=== PATIENT | female | born 1985 | race Two or more races ===

== ENCOUNTER 2017-02-28 19:47 | Inpatient (IN) | payer OTHER, MEDICAID ==
[~2017-02-28] VITALS: Ht 172.7 cm; Wt 65.2 kg
[2017-02-28] MEDS: CETIRIZINE (ZyrTEC) 10 MG TAB PO SCH (03:00)
[2017-02-28] MEDS ORDERED: ZYRT10TA2 PO (20:21)
[2017-02-28] MEDS ORDERED: EFFE75CA75 PO (20:21)
[2017-02-28] MEDS ORDERED: CLAR10CA3 PO (20:21)
[2017-02-28] MEDS ORDERED: BENA25CA4 PO (20:21)
[2017-02-28] MEDS ORDERED: CLON1TAB PO (20:21)
[2017-02-28] MEDS ORDERED: EPIP0.3I2 IJ (20:21)
[2017-02-28] MEDS ORDERED: GAST100C PO (20:21)
[2017-02-28] MEDS ORDERED: diphenhydrAMINE INJ 50MG/ML VIAL (J1200) IV STA ×2 (21:35→22:40)
[2017-02-28] MEDS ORDERED: LEVALBUTEROL 1.25 MG/0.5 ML CONCENTRATE NEB INH ONE (21:45)
[2017-02-28] MEDS ORDERED: dexameTHASONE 20 MG/5 ML VIAL (J1100) IV ONE ×2 (21:45→23:00)
[2017-02-28 21:48] LABS: MEAN CORPUSCULAR HEMOGLOBIN 31.5 pg (27.0-33.0); MEAN CORPUSCULAR HGB CONC 34.6 g/dl (32.0-36.5); MEAN CORPUSCULAR VOLUME 90.8 fl (80.0-96.0); RED CELL DISTRIBUTION WIDTH 12.7 % (11.5-14.5); WHITE BLOOD COUNT 10.5 K/mm3 (4.0-10.0)
[2017-02-28 22:20] LABS: CONTROL LINE HCG INT CTR LINE PRESENT
[2017-02-28 22:23] LABS: ALBUMIN 3.3 GM/DL (3.2-5.2); ALBUMIN/GLOBULIN RATIO 0.85 (1.00-1.93); ALKALINE PHOSPHATASE 68 U/L (45-117); ALT/SGPT 8 U/L (12-78); ANION GAP 10 MEQ/L (8-16); AST/SGOT 7 U/L (15-37); BILIRUBIN,DIRECT < 0.1 MG/DL (0.0-0.2); BILIRUBIN,TOTAL 0.2 MG/DL (0.2-1.0); BLOOD UREA NITROGEN 14 MG/DL (7-18); CALCIUM LEVEL 8.7 MG/DL (8.5-10.1); CARBON DIOXIDE LEVEL 23 MEQ/L (21-32); CHLORIDE LEVEL 108 MEQ/L (98-107); CREATININE FOR GFR 0.73 MG/DL (0.55-1.02); GLOMERULAR FILTRATION RATE > 60.0 (>60); GLUCOSE, FASTING 163 MG/DL (70-105); POTASSIUM SERUM 4.3 MEQ/L (3.5-5.1); SODIUM LEVEL 141 MEQ/L (136-145); TOTAL PROTEIN 7.2 GM/DL (6.4-8.2)
[2017-02-28] MEDS: LEVALBUTEROL 1.25 MG/0.5 ML CONCENTRATE NEB INH SCH ×3 (23:01→23:04)
[2017-02-28] MEDS ORDERED: LORATAB PO (23:08)
[2017-02-28] MEDS ORDERED: ZANA4TAB PO (23:09)
[2017-02-28 23:20] LABS: ABG BASE EXCESS -1.1 (-2.0-2.0); ABG HCO3 23.1 MEQ/L (22.0-26.0); ABG PARTIAL PRESSURE CO2 36.9 mmHg (35.0-45.0); ABG PARTIAL PRESSURE O2 155.6 mmHg (75.0-100.0); ABG STANDARD HCO3 23.6 MEQ/L (22.0-26.0); ABG TOTAL CO2 24.2 MEQ/L (22.0-29.0); ABG pH (ARTERIAL) 7.414 UNITS (7.350-7.450)
[2017-02-28 23:35] LABS: METHADONE URINE NEGATIVE (NEGATIVE)
[2017-03-01] VITALS (15 sets, daily range): BP systolic 133–165; BP diastolic 75–108; O2SAT 97–100
[2017-03-01] MEDS ORDERED: diphenhydrAMINE INJ 50MG/ML VIAL (J1200) IV STA (01:13)
[2017-03-01] MEDS ORDERED: LORazepam 2 MG/ML VIAL (J2060) IV STA (01:56)
--- NOTE | 2017-03-01 02:32 | HPEPDOC ---
General Date of Admission Mar 01, 2017 at 00:56 Other Providers PCP: Dr. Monteiro Attending Physician: KULWINDER JAMES MD Chief Complaint The patient is a 32-year-old female admitted with a reason for visit of Dyspnea And Respiratory Abnormalities. Source: Patient, Family Exam Limitations: Clinical conditions Timing/Duration: 4-6 hours Associated Symptoms: Chest Pain, Shortness of breath History of Present Illness Ms. Castillo is a 32 year old female who presents to [facility]'s Emergency Department with dyspnea. She is accompanied by her boyfriend who provides some of the history. Past medical history is significant for mast cell activation syndrome, psoriatic arthritis, anxiety, and history of gastroparesis secondary to a prior eating disorder. Patient is somewhat vague in describing her current condition, but reports dyspnea and shortness of breath that started earlier this evening. She relates that her current clinical condition is secondary to an exacerbation of her mast cell activation syndrome. She had a prior exacerbation approximately two weeks ago and presented to [facility] where a central line was placed. She was also intubated at that time. Patient reports that the central line caused a pneumothorax and patient was transferred to [facility] where they attempted to decompress the pneumothorax twice. They were successful on the second attempt. Patient reports that she was extubated two days later. At time of discharge, approximately one week later, patient states that she still had a 10% pneumothorax, but the thoracic specialists stated that the patient could safely be discharged. Patient presents to [facility] with what she states is an exacerbation of her mas cell activation syndrome. She reports that her symptoms always start out the same way and that she requires increased doses of benadryl and loratidine and then eventually she requires intubation. Patient received a couple doses of benadryl, steroid, and nebulizer treatments in the emergency department with no subjective improvement in patient's symptoms. She states that the only position that appears to provide some relief is sitting up and hugging her knees. She appears frustrated that no one seems to take seriously with regards to needing intubation. An ABG shows a normal pH and an increased pO2. Toxicology screen was negative. Vitals show tachycardia. Labs are with optimal range. Patient admits to shortness of breath, chest pain secondary to breathing difficulties, weakness, chronic headache, itchy eyes, runny nose, abdominal pain , dysphagia, peripheral edema only with exacerbation of psoriatic arthritis, non -bloody diarrhea, neck pain, joint pain, and decreased urination. Remainder of review of systems was negative. Hospitalist service was consulted and patient was admitted for further medical management. Home Medications Scheduled Cetirizine HCl (Zyrtec Allergy) 10 Mg Tab, 10 MG PO QHS, (Reported) Clonazepam (Clonazepam) 1 Mg Tab, 1 MG PO TID, (Reported) Clonazepam (Clonazepam) 1 Mg Tab, 1 MG PO TID Cromolyn Sodium (Gastrocrom) 100 Mg/5 Ml Con, 10 ML PO BID, (Reported) Hydroxyzine HCl (Hydroxyzine HCl) 50 Mg Tab, 50 MG PO Q8H Loratadine (Loratadine Allergy Relief) 10 Mg Tab, 10 MG PO DAILY, (Reported) Montelukast Sodium (Montelukast Sodium) 10 Mg Tab, 10 MG PO DAILY Prednisone (Prednisone) 10 Mg Tab, 10 MG PO TAPER Take 4 tabs daily x 3 days, then 3 tabs daily x 3 days, then 2 tabs daily x 3 days, then 1 tab daily x 3 days and stop Venlafaxine Hydrochloride (Effexor Xr) 75 Mg Cap, 75 MG PO DAILY, (Reported) Scheduled PRN (Epipen 2-Bernard) 0.3 Mg/0.3 Ml Inj, 0.3 MG IJ PRN PRN for allergic reaction , ( Reported) Diphenhydramine HCl (Benadryl Allergy) 25 Mg Cap, 25 MG PO Q4H PRN for MAST CELL STABILIZE, (Reported) Temazepam (Temazepam) 7.5 Mg Cap, 7.5 MG PO Q8HP PRN for ANXIETY/AGITATION Tizanidine Hydrochloride (Zanaflex) 4 Mg Tab, 1 TAB PO TID PRN for MUSCLE SPASMS , (Reported) Allergies Coded Allergies: Ciprofloxacin (Verified Allergy, Severe, anaphylaxis, 02/28/17) Enoxaparin (Verified Allergy, Severe, anaphylaxis, 02/28/17) Morphine (Verified Allergy, Severe, anaphylaxis, 02/28/17) Nitrofurantoin (Verified Allergy, Intermediate, anaphylaxis, 02/28/17) Past Medical History Medical History 1. Mast cell activation syndrome 2. Psoriatic arthritis 3. Anxiety 4. History of gastroparesis Surgical History 1. Cholecystectomy 2. Appendectomy 3. Laminectomy, L3-4, L4-5 4. Ovarian cysts x3 Family History Mother: alive, controlled atrial fibrillation Father: , in the line of duty (Electrical Discharge Machine Operator) Sister: , heroin overdose Social History Lives with boyfriend Denies children in the home Denies pets in the home Previously worked for the [employer], but was terminated secondary to mast cell activation syndrome diagnosis Admits to occasional alcohol consumption Admits to prior history of social tobacco use, but nothing currently Admits to prior marijuana use, but denies current illicit drug use Admits to domestic and international travel, but nothing recently Review of Symptoms Constitutional: Reports: Weakness, Denies: Chills, Fever, Night Sweats, Weight Loss Eyes: Reports: Other (itchy eyes), Denies: Pain, Vision change, Conjunctivae inflammation, Eyelid inflammation ENT: Reports: Head Aches, Dysphagia, Denies: Sinus Congestion, Post Nasal Drip, Epistaxis Skin: Denies: Rash, Lesions, Jaundice, Bruising Pulmonary: Reports: Dyspnea, Denies: Cough, Pleuritic Chest Pain Cardiovascular: Reports: Chest Pain (related to difficulty breathing), Denies: Palpitations, Orthopnea, Paroxysmal Noc. Dyspnea, Edema, Lt Headedness Gastrointestinal: Reports: Abdominal Pain, Diarrhea, Denies: Vomiting, Constipation, Melena, Hematochezia Genitourinary: Reports: Other Symptoms (decreased urination), Denies: Dysuria, Frequency, Incontinence, Hematuria Hematologic: Denies: Bruising, Bleeding Excessively Musculoskeletal: Reports: Neck Pain, Joint Pain Neurological: Reports: Weakness Physical Examination General Exam: Positive: Alert, Cooperative, Moderate Distress Eye Exam: Positive: PERRLA, Conjunctiva & lids normal, EOMI, Negative: Sclera icteric, Ptosis ENT Exam: Positive: Atraumatic, Mucous membr. moist/pink, Pharynx Normal, Tongue Midline, Nares Patent, Negative: Pharyngeal Edema Neck Exam: Positive: Supple, +2 carotid pulse wo bruit, Other (right-sided internal jugular venous catheter), Negative: JVD, thyromegaly Chest Exam: Positive: Wheezing (bilateral, inspiratory) Heart Exam: Positive: Tachycardic, Regular Rhythm, Normal S1, Normal S2, Negative: Gallops, Murmurs, Rubs Telemetry: Positive: Tachycardia Abdomen Exam: Positive: BS Hypoactive, Soft, Tenderness, Negative: Hepatospenomegaly, Mass, Hernia Extremity Exam: Positive: Normal pulses (tachycardic), Negative: Clubbing, Cyanosis, Edema, Tenderness, Swelling Skin Exam: Negative: Nl turgor and temperature, Rash, Breakdown, Lesion, Pruritus Neuro Exam: Positive: Cranial Nerves 3-12 NL Psych Exam: Positive: Anxiety Vital Signs Vital Signs Date Time Temp Pulse Resp B/P (MAP) Pulse Ox O2 Delivery O2 Flow Rate FiO2 03/01/17 00:47 130 20 98 03/01/17 00:46 108/54 (72) 02/28/17 19:48 98.8 Room Air Height (in): 68 Weight (kg): 67.2 BMI (kg): 22.5 Laboratory Data Labs 24H Laboratory Tests 2 02/28/17 21:39: Anion Gap 10, Glomerular Filtration Rate > 60.0, Calcium Level 8.7, Aspartate Amino Transf (AST/SGOT) 7L, Alanine Aminotransferase (ALT/SGPT) 8L, Alkaline Phosphatase 68, Total Bilirubin 0.2, Direct Bilirubin < 0.1, Total Protein 7.2, Albumin 3.3, Albumin/Globulin Ratio 0.85L, Thyroid Stimulating Hormone (TSH) 1.250, Human Chorionic Gonadotropin, Qual NEGATIVE, Salicylates Level < 1.7L, Acetaminophen Level < 2.0L, Ethyl Alcohol Level < 0.003 02/28/17 22:52: Urine Amphetamines Screen NEGATIVE, Urine Benzodiazepines Screen NEGATIVE, Urine Opiates Screen NEGATIVE, Urine Methadone Screen NEGATIVE, Urine Barbiturates Screen NEGATIVE, Urine Phencyclidine Screen NEGATIVE, Urine Cocaine Metabolite Screen NEGATIVE, Urine Cannabinoids Screen NEGATIVE 02/28/17 23:06: Blood Gas Bicarbonate Standard 23.6, Arterial Blood pH 7.414, Arterial Blood Partial Pressure CO2 36.9, Arterial Blood Partial Pressure O2 155.6H, Arterial Blood Total CO2 24.2, Arterial Blood HCO3 23.1, Arterial Blood Base Excess -1.1 , Arterial Blood Oxygen Saturation 99.2H CBC/BMP Laboratory Tests 02/28/17 21:39 Red Blood Count 3.80 L, Mean Corpuscular Volume 90.8, Mean Corpuscular Hemoglobin 31.5, Mean Corpuscular Hemoglobin Concent 34.6, Red Cell Distribution Width 12.7 RAD Interpretation STUDY: CXR Rad Actions: Report Not Available, Films Reviewed RAD Interpretation: Normal Assessment/Plan This is a 32 year old female with a past medical history significant for mast cell activation syndrome, psoriatic arthritis, anxiety, and a history of gastroparesis who presents with dyspnea with an unclear etiology at this time. Could be secondary to an underlying, undiagnosed etiology of asthma. Plan / VTE VTE Prophylaxis Ordered?: Yes (TEDs and sequentials) Plan Plan Dyspnea History of mast cell activation syndrome apparently diagnosed at [facility] in [place], [place]. Obtaining records to confirm diagnosis. Initiate ranitidine, diphenhydramine, albuterol nebulizer, and oxygen for the time being. Oxygen saturation within optimal range. ABG shows hypoventilation. Tachycardia Heart rate bedside was 139 and regular. Admit patient to PCU for cardiac monitoring. Anxiety Continue patient on home medication of clonazepam. Hyperglycemia Blood glucose at time of admission was 163. Continue to monitor. Likely stress response. Disposition Admit: PCU Anticipated hospitalization: 2 nights Attending: Dr. Snyder Obtain records from [facility] in [place], [place] where diagnosis of mast cell activation syndrome was made. Diet: Continue Current Activity: Encourage Ambulation Diagnostics: Check Labs, Repeat Labs in AM Anticipated Discharge: Home ALISHA MENG Mar 01, 2017 02:31
[2017-03-01] MEDS ORDERED: SODIUM CHLORIDE 0.9% INJ 10 ML SYR IV PRN (03:00)
[2017-03-01] MEDS: ALBUTEROL SULFATE 2.5 MG/0.5 ML INH NEB SOLN NEB PRN ×3 (04:01→11:59)
[2017-03-01] MEDS: diphenhydrAMINE 50 MG CAP PO PRN ×3 (04:13→23:47)
[2017-03-01] MEDS: ACETAMINOPHEN 325 MG TAB PO PRN ×3 (04:14→18:29)
[2017-03-01] MEDS: SODIUM CHLORIDE 0.9% INJ 10 ML SYR IV SCH ×3 (06:39→20:44)
[2017-03-01] MEDS ORDERED: predniSONE 10 MG TAB PO ONE (07:15)
[2017-03-01] MEDS ORDERED: MONTELUKAST 10 MG TAB PO ONE (07:15)
--- NOTE | 2017-03-01 08:51 | REP ---
Portable chest: Single view. History: Line placement. Comparison study: January 12, 2017. Findings: A right internal jugular line has been inserted with its tip in the expected location of the superior vena cava. EKG monitoring electrodes are seen and there are surgical clips in the right upper quadrant of the abdomen. The lungs are well inflated and clear. The heart is not enlarged. Pulmonary vasculature is not increased. There is no evidence of pneumothorax. Impression: Right internal jugular line in place. No evidence of pneumothorax. Signed by Franklin Kate MD 03/01/2017 08:42 A
[2017-03-01] MEDS ORDERED: diphenhydrAMINE INJ 50MG/ML VIAL (J1200) IV ONE ×2 (09:00→14:00)
[2017-03-01] MEDS: clonazePAM 1 MG TAB PO SCH ×3 (09:10→20:43)
[2017-03-01] MEDS: raNITIdine SYRUP 150 MG/10 ML UDC PO SCH ×2 (10:19→20:42)
[2017-03-01] MEDS: tiZANidine 4 MG TAB PO PRN ×3 (10:20→23:50)
[2017-03-01] MEDS: VENLAFAXINE **XR** 75MG CAPSULE PO SCH (10:21)
[2017-03-01] MEDS ORDERED: MONT10TA2 PO (13:05)
[2017-03-01] MEDS ORDERED: PRED10TA2 PO (13:05)
[2017-03-01] MEDS ORDERED: ISOVUE-370 76% 100ML VIAL (Q9967) As Ordered ONE ×2 (13:52→15:15)
--- NOTE | 2017-03-01 15:00 | REP ---
CERVICAL SPINE: AP and lateral views of the cervical spine are performed. There is no compression fracture. There is no prevertebral soft tissue swelling. There is straightening of the normal cervical lordosis. Disc spaces appear relatively well preserved. IMPRESSION: Straightening of the normal cervical lordosis is probably positional. I do not see significant degenerative disc change. Signed by Waqar Cid MD 03/01/2017 04:46 P
--- NOTE | 2017-03-01 16:35 | REP ---
CT NECK WITH CONTRAST WITH CONTRAST: HISTORY: Respiratory distress. CONTRAST: Isovue 370, 75 mL. The naso-, moe-, and hypopharynx, larynx and subglottic trachea are normal in appearance. The salivary and thyroid glands are normal in size and density. Small lymph nodes less than 1 cm in size are present in the internal jugular chains, posterior triangles, submandibular and submental areas. The lung apices are clear. The visualized sinuses are clear. IMPRESSION: There is no neck mass or adenopathy. Signed by Rupesh Alexander MD 03/01/2017 04:42 P
--- NOTE | 2017-03-01 19:43 | MHCRPDOC ---
[facility] Consultation Consultation DATE OF CONSULTATION: 03/01/17 CONSULTATION REQUESTED BY: REASON FOR CONSULTATION: For evaluation of depression and anxiety. RELEVANT HISTORY:. Patient is a 32-year-old female, single, domiciled with the boyfriend, with past psychiatric history half major depression, anxiety disorder and eating disorder, no previous psychiatric admission to hospital. Denies any previous suicide attempt. Part medical history of mast cell activation syndrome. Patient reported that she has been diagnosed with major depression and previously been tried on Zoloft which did not help much so recently has been changed to Effexor XR 75 mg daily dose also been prescribed with Klonopin 1 mg when necessary up to 3 mg a day. She reported that she has recently moved with her boyfriend in this area and does not have a treatment provider for psychiatry over here. Because of that. Her primary medical doctor has been prescribing her psychiatric medications, but the dose of Effexor has not been helping enough, so she would like to titrate the dose of Effexor. She reported that she has been also diagnosed with eating disorder and recently went to refeeding unit. She reported that she has been diagnosed with anxiety disorder, which makes him have nervousness, fidgetiness, and at times panicky menses under stress. She also reported that she has been diagnosed with depression but recently her depression is under more control. She denies any suicidal or homicidal ideations. Denies ever attempting to kill herself, but does accept that she cuts herself as a nonsuicidal behavior, last time she cut herself was longtime ago and she is proud of able to control her impulses. She reported that she used to be on DBT and learned a lot of coping mechanisms that she would like to use in her life, but recently she came to know that her boyfriend is being deployed in 2 weeks and she will not be able to him anytime soon. She denies ever having any manic symptoms or psychotic symptoms. She currently denies any recent eating disorder problems. She denies any active PTSD or OCD symptoms PAST PSYCHIATRIC HISTORY:. Patient has been diagnosed with major depression and anxiety for a long time and has been treated outpatient. Throughout this time, she was tried on Zoloft and currently is on Effexor XR 75 mg she denies any suicide attempt. PAST MEDICAL HISTORY: Mast cell activation syndrome FAMILY HISTORY: not significant PERSONAL AND SOCIAL HISTORY: The patient was born and raised in [place]. Resides in: [place] Marital Status: S Single Children: None Employment: Full-time SUBSTANCE ABUSE HISTORY: Denies any substance use LEGAL HISTORY: . MENTAL STATUS EXAMINATION: 32yo female sitting in the chair, looks appropriate for the stated age, fair hygiene and grooming, increased psychomotor activities, no abnormal movements, cooperative with fair eye contact, speech is normal in rate, rhythm, amount and prosody, mood is sad & anxious, affect full and mood congruent, thought process is logical and goal directed, denies suicidal and homicidal ideations, denies hallucinations, no delusions elicited, aaox3, fair immediate, short term and terminal clerk memory, fair insight, judgement and impulse control DIAGNOSIS: 1. Major depressive disorder with anxiety, eating disorder by history. PLAN: 1.. Continue medical treatment. 2.. Consider starting Atarax 50 mg by mouth every 8 hours when necessary for anxiety. Patient can follow-up outpatient for psychiatry for medication titration and psychotherapy discharge planners will help her arrange follow-up treatment. Patient does not meet criteria for inpatient psychiatric admission on an involuntary basis. Vital Signs Vital Signs Date Time Temp Pulse Resp B/P (MAP) Pulse Ox O2 Delivery O2 Flow Rate FiO2 03/01/17 16:00 Room Air 03/01/17 14:10 99.6 115 20 134/93 (107) 95 Home Medications Current Medications Current Medications Venlafaxine HCl (Effexor Xr) 75 mg DAILY PO Last administered on 03/01/17t 10:21; Start 03/01/17 at 09:00; Stop 03/31/17 at 08:59 Zolpidem Tartrate (Ambien) 5 mg QHS PO ; Start 03/01/17 at 21:00; Stop 03/08/17 at 20:59 Scheduled Cetirizine HCl (Zyrtec Allergy) 10 Mg Tab, 10 MG PO QHS, (Reported) Clonazepam (Clonazepam) 1 Mg Tab, 1 MG PO TID, (Reported) Cromolyn Sodium (Gastrocrom) 100 Mg/5 Ml Con, 10 ML PO BID, (Reported) Loratadine (Loratadine Allergy Relief) 10 Mg Tab, 10 MG PO DAILY, (Reported) Montelukast Sodium (Montelukast Sodium) 10 Mg Tab, 10 MG PO DAILY Prednisone (Prednisone) 10 Mg Tab, 10 MG PO TAPER Take 4 tabs daily x 3 days, then 3 tabs daily x 3 days, then 2 tabs daily x 3 days, then 1 tab daily x 3 days and stop Venlafaxine Hydrochloride (Effexor Xr) 75 Mg Cap, 75 MG PO DAILY, (Reported) Scheduled PRN (Epipen 2-Bernard) 0.3 Mg/0.3 Ml Inj, 0.3 MG IJ PRN PRN for allergic reaction , ( Reported) Diphenhydramine HCl (Benadryl Allergy) 25 Mg Cap, 25 MG PO Q4H PRN for MAST CELL STABILIZE, (Reported) Tizanidine Hydrochloride (Zanaflex) 4 Mg Tab, 1 TAB PO TID PRN for MUSCLE SPASMS , (Reported) Allergies Coded Allergies: Ciprofloxacin (Verified Allergy, Severe, anaphylaxis, 02/28/17) Enoxaparin (Verified Allergy, Severe, anaphylaxis, 02/28/17) Morphine (Verified Allergy, Severe, anaphylaxis, 02/28/17) Nitrofurantoin (Verified Allergy, Intermediate, anaphylaxis, 02/28/17) MIRIAM CHAUDHARI MD Mar 01, 2017 19:43
[2017-03-01] MEDS: CETIRIZINE (ZyrTEC) 10 MG TAB PO SCH (20:42)
[2017-03-01] MEDS ORDERED: zolPIDEM TARTRATE 5 MG TAB PO SCH (21:00)
[2017-03-01] MEDS: hydrOXYzine 50 MG TAB PO SCH (21:13)
--- NOTE | 2017-03-01 22:25 | IPN ---
DATE: 03/01/2017 Patient seen and examined at the bedside. Chart has been reviewed. This morning patient is tearful at the bedside, complaining of significant pain in the neck. Complains of wheezing. No stridor on examination. No issues on telemetry. VITAL SIGNS: Temperature 97.5, pulse 95, respiratory rate 16, blood pressure 165/93, 99% on room air. No stridor on exam. Patient is tearful. No facial angioedema. Able to speak in full sentences. No use of respiratory accessory muscles. LUNGS: Diminished but clear to auscultation. No wheezing or rales. HEART: S1, S2, sinus rhythm. ABDOMEN: Soft, nontender, nondistended. Positive bowel sounds. NECK: Right-sided internal jugular catheter. EXTREMITIES: No cyanosis, clubbing, or any pitting edema. LABORATORY DATA: CBC and metabolic panel February 28 have been reviewed. ASSESSMENT AND PLAN: This is a 32-year-old female with history of mast cell activation syndrome, psoriatic arthritis, anxiety, and gastroparesis, who presents with respiratory distress. CURRENT ISSUES: 1. Dyspnea with history of mast cell activation syndrome diagnosed in the past. Obtaining records for diagnosis. Continue on ranitidine, diphenhydramine, albuterol, oxygen. Add montelukast and potassium 30 mg daily and discharge once stable. 2. Anxiety and severe depression. Patient has had multiple stressors recently. She lost her job. Family has left her. Severely depressed about her chronic medical illness. She was agreeable to having a psychiatrist see her. 3. Insomnia. Patient will be given Ambien. 4. Hyperglycemia. Patient's glucose was 163. Monitor. Most likely due to stress response. DISCHARGE PLAN: In the morning if stable overnight. MTDD
[2017-03-01] MEDS: ACETAMINOPHEN TAB 650MG DOSE (2X325MG) PO PRN (23:48)
[2017-03-02] MEDS: tiZANidine 4 MG TAB PO PRN ×2 (04:08→13:55)
[2017-03-02] MEDS: ACETAMINOPHEN TAB 650MG DOSE (2X325MG) PO PRN ×3 (04:08→13:55)
[2017-03-02] MEDS: diphenhydrAMINE 50 MG CAP PO PRN ×2 (04:08→08:33)
[2017-03-02] MEDS: SODIUM CHLORIDE 0.9% INJ 10 ML SYR IV SCH (05:02)
[2017-03-02] MEDS: hydrOXYzine 50 MG TAB PO SCH ×2 (05:02→13:54)
[2017-03-02 05:27] LABS: BASO % 0.2 % (0.0-1.0); EOS % 0.3 % (0.0-3.0); LARGE UNSTAINED CELL # 0.2 K/mm3 (0.0-0.4); LARGE UNSTAINED CELL % 1.4 % (0.0-4.0); LYMPH # 3.1 K/mm3 (1.5-4.5); LYMPH % 21.9 % (24.0-44.0); MEAN CORPUSCULAR HEMOGLOBIN 31.6 pg (27.0-33.0); MEAN CORPUSCULAR HGB CONC 35.1 g/dl (32.0-36.5); MEAN CORPUSCULAR VOLUME 89.9 fl (80.0-96.0); MONO # 0.9 K/mm3 (0.0-0.8); MONO % 6.4 % (0.0-5.0); NEUTROPHILS # 9.7 K/mm3 (1.8-7.7); NEUTROPHILS % 69.7 % (36.0-66.0); PLATELET COUNT, AUTOMATED 300 k/mm3 (150-450); RED CELL DISTRIBUTION WIDTH 12.6 % (11.5-14.5); WHITE BLOOD COUNT 13.9 K/mm3 (4.0-10.0)
[2017-03-02 05:59] LABS: ANION GAP 9 MEQ/L (8-16); BLOOD UREA NITROGEN 16 MG/DL (7-18); CARBON DIOXIDE LEVEL 26 MEQ/L (21-32); CHLORIDE LEVEL 110 MEQ/L (98-107); CREATININE FOR GFR 0.72 MG/DL (0.55-1.02); GLOMERULAR FILTRATION RATE > 60.0 (>60); GLUCOSE, FASTING 79 MG/DL (70-105); SODIUM LEVEL 145 MEQ/L (136-145)
[2017-03-02 06:00] VITALS: BP 131/86
[2017-03-02] MEDS: clonazePAM 1 MG TAB PO SCH ×2 (08:30→15:46)
[2017-03-02] MEDS: raNITIdine SYRUP 150 MG/10 ML UDC PO SCH (08:30)
[2017-03-02] MEDS: VENLAFAXINE **XR** 75MG CAPSULE PO SCH (08:30)
[2017-03-02] MEDS ORDERED: MONTELUKAST 10 MG TAB PO SCH (09:00)
[2017-03-02] MEDS ORDERED: predniSONE 10 MG TAB PO SCH (09:00)
[2017-03-02] MEDS ORDERED: LORazepam 2 MG/ML VIAL (J2060) IV ONE (09:30)
[2017-03-02] MEDS ORDERED: diphenhydrAMINE INJ 50MG/ML VIAL (J1200) IV ONE (09:30)
--- NOTE | 2017-03-02 09:37 | CR ---
DATE OF ADMISSION: 03/01/2017 The patient is a 33-year-old female who presents with a history of airway obstruction. She has been intubated six times from this. She has been seen in [place]. One time the patient required a subclavian line and developed a pneumothorax complicating that. The patient came in feeling short of breath. Her saturations are good. Her voice is normal. She says that she has a mast cell disorder, which causes this. The patient does have problems with anxiety. The patient says that racemic epinephrine seems to help her. The patient does have a history of panic disorder. The patient does have other aches and pains in her body. PHYSICAL EXAMINATION: Exam of the oropharynx looked normal. She had 2+ tonsillar hypertrophy. Examination using a flexible fiberoptic nasopharyngoscope. The nasal septum is deviated toward the right side. I examined the nose, nasopharynx, oropharynx, hypopharynx, and larynx. The larynx is completely normal. 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 This is usually controlled well with diazepam. Sometimes patients who do not respond well may require Botox injection.
[2017-03-02] MEDS ORDERED: ZOLP5TAB PO (10:40)
[2017-03-02 14:00] VITALS: BP 135/82
[2017-03-02] MEDS ORDERED: HYDRO50TAB PO (15:26)
[2017-03-02] MEDS ORDERED: CLON1TAB PO (15:26)
[2017-03-02] MEDS ORDERED: TEMA7.5C PO (15:32)
[2017-03-02] MEDS ORDERED: TEMAZEPAM 15 MG CAP PO SCH (21:00)
--- NOTE | 2017-03-03 14:28 | DSES ---
DATE OF ADMISSION: 03/01/2017 DATE OF DISCHARGE: 03/02/2017 PRIMARY CARE PHYSICIAN: Dr. Monteiro PRIMARY DISCHARGE DIAGNOSES: Laryngeal Spasms Severe Anxiety Major Depression Eating Disorder History of Self-mutilation (cutting her skin) Mastoid Activation Syndrome Neck Pain Psoriatic Arthritis Manipulative Behavior Possible Drug-seeking behavior Poor IV Access CONSULTANTS DURING THIS ADMISSION: 1. Dr. Derick Currie, ear, nose and throat surgeon. 2. Dr. Rose, psychiatrist. DISCHARGE MEDICATIONS: - montelukast 10 mg daily - prednisone taper - Restoril 7.5 mg po [id number] anxiety - cetirizine 10 mg nightly - clonazepam 1 mg three times a day - cromolyn sodium 10 mL by mouth twice a day - diphenhydramine 25 every 4 as needed - Epipen as needed - loratadine - Zanaflex one tab by mouth three times a day - Effexor 75 mg daily HOSPITAL COURSE: This is a 32-year-old female previously worked in the medical field in the psychiatric [employer] who recently moved to the area and follows closely with her Primary Care Physician's office at [facility], Dr. Monteiro, with weekly phone calls, weekly refills of clonazepam, self-medicates with over the counter benadryl in times of severe emotional stress in fear of her stress potentially causing mast cell activation, history of self-mutilation cutting herself in the past which she currently denies, previously treated with behavioral therapy, eating disorder,history of mast cell activation syndrome, multiple intubations according to the patient, and psoriatic arthritis presents to emergency room with complaints of respiratory distress which the patient attributed to possible exacerbation of her chronic mast cell activation syndrome. Patient was admitted for observation, given intravenous (IV) Decadron, cromolyn, h2 blockers, nebulizers and continued on oral benadryl. A central line was placed due to poor intravenous access. She had no stridor on examination,and saturated 98-100% on room air. She demanded IV fentanyl and IV dilaudid and when denied, threatened to leave against medical advice. Throughout her admission, patient was very tearful and extremely depressed, constantly demanding intravenous benadryl with scheduled atarax. She was evaluated by Dr. Rose, Psychiatrist, who recommended outpatient psychiatric referral for severe depression, to continue her current psychiatric medications and as needed restoril that would help with her anxiety and insomnia. She had 2.5 mg ambien which helped with her difficulty sleeping. Due to her prior history of intubations, ENT surgeon, Dr. Currie was consulted. CT of the neck was negative for acute obstruction.Direct laryngoscopy possible laryngeal spasm that usually responds well to benzodiazepines and possible Botox injection if no significant improvement.At hospital discharged, I reiterated the need to have an pc maintenance technician to help manage her mast cell activation syndrome, a psychiatrist adjust her antidepressants and anxiety meds, and ENT followup to treat her laryngospasms. Per Dr. Currie, patient's complains of respiratory distress if no physical findings of stridor should not be treated with intubations, but rather observation and benzodiazepines with as400 consultant to confirm the need for emergency airway. Patient demanding intravenous benadryl and intravenous fentanyl or dilaudid prior to hospital discharge. She stated that her primary care physician had referred her for port placement due to venous access. I have discussed with the floor nurse that I will not be giving her IV fentanyl or IV dilaudid before discharge, and she needs immediate followup with her PCP, referral to immunology and rheum to deal with her medical issues. Prior to her discharge, I spoke with Dr. Monteiro, PCP at [facility], before the patient's hospital discharge, he was concerned about her self-administering medications through a direct port. FOLLOWUP ISSUES: 1. Psoriatic arthritis. Will need referral to rheumatology, Dr. Collado. 2. Mast cell activation syndrome. Referral to Dr. Purvis, allergy/immunology for confirmation of diagnosis and maintenance therapy 3. Laryngeal spasm. Refer to Dr. Derick Currie, ear, nose, and throat surgeon. 4. Poor intravenous access with history of mast cell activation syndrome. Port placement for treatment for psoriatic arthritis and mast cell activation syndrome. Refer to general surgery for port placement by PCP if he deems it necessary 5. Immediate followup with primary care physician, Dr. Monteiro at hospital discharge within 1 week. LABS ON DISCHARGE: White count 13.9, hemoglobin 11, hematocrit 31, platelet count 300. Sodium 145, potassium 4, chloride 110, bicarbonate 26, BUN 16, creatinine 0.72, glucose 72. Tryptase pending. IMAGING STUDIES: CT of the neck: No neck mass or adenopathy. Cervical spine CT: Straightening, possible positional. No significant degenerative disc change. TIME SPENT ON DISCHARGE: 40 minutes. MTDD
[2017-03-11] MEDS ORDERED: VENL150C43 PO (13:31)
[2017-03-11] MEDS ORDERED: CLON1TAB PO (13:31)
== END 2017-03-02 16:10 | disposition home or self-care (01) | DRG 115 ==
LOC: M ED 19:47 → M ED INP 03-01 00:56 → M PCU 03-01 02:32 → M MS5PR 03-01 13:59
PROVIDERS: ADMIT Internal Medicine; ATTEND General Practice
DX: J38.5 Laryngeal spasm (principal); D89.40 Mast cell activation, unspecified; L40.50 Arthropathic psoriasis, unspecified; F50.9 Eating disorder, unspecified; R06.00 Dyspnea, unspecified; F32.9 Major depressive disorder, single episode, unspecified; F41.9 Anxiety disorder, unspecified; G47.00 Insomnia, unspecified; R73.9 Hyperglycemia, unspecified; Z88.1 Allergy status to other antibiotic agents; Z88.8 Allergy status to other drugs, medicaments and biological substances; Z88.5 Allergy status to narcotic agent; Z79.899 Other long term (current) drug therapy; Z91.5 Personal history of self-harm

== ENCOUNTER 2017-03-15 11:13 | Day surgery (SDC) | payer OTHER ==
[~2017-03-15] VITALS: Ht 172.7 cm; Wt 68.0 kg
[~2017-03-15 11:13] MED LIST: BENA25CA4 PO; CLAR10CA3 PO; CLON1TAB PO; EFFE75CA75 PO; EPIP0.3I2 IJ; GAST100C PO; HYDRO50TAB PO; LORATAB PO; LR 1,000 ML IV ONE; MONT10TA2 PO; PRED10TA2 PO; TEMA7.5C PO; VENL150C43 PO; ZANA4TAB PO; ZOLP5TAB PO; ZYRT10TA2 PO; ceFAZolin SOD 1 GM in D5W MINI-BAG PLUS 50 ML IV ONE
[2017-03-15] MEDS ORDERED: fentaNYL 100 MCG/2 ML INJECTION (J3010) As Ordered ONE (11:29)
[2017-03-15] MEDS ORDERED: LIDOCAINE 2% INJ 100 MG/5 ML SDV (FOR ANES.) As Ordered ONE (11:29)
[2017-03-15] MEDS ORDERED: PROPOFOL 200 MG/20 ML VIAL As Ordered ONE (11:29)
[2017-03-15] MEDS ORDERED: MIDAZOLAM INJ 2 MG/2 ML VIAL (J2250) As Ordered ONE (11:30)
[2017-03-15] MEDS ORDERED: BUPIVACAINE HCL 0.5% 30 ML VIAL As Ordered ONE (12:10)
[2017-03-15] MEDS ORDERED: LIDOCAINE 1% SDV INJ 30 ML VIAL As Ordered ONE (12:10)
[2017-03-15] MEDS ORDERED: HEPARIN SOD (PORCINE) 5000 UNITS/ML VIAL As Ordered ONE (12:10)
[2017-03-15] MEDS ORDERED: PROPOFOL 500 MG/50 ML VIAL As Ordered ONE (12:38)
[2017-03-15] MEDS ORDERED: diphenhydrAMINE INJ 50MG/ML VIAL (J1200) As Ordered ONE (12:48)
[2017-03-15 12:58] LABS: CONTROL LINE UCG INT CTR LINE PRESENT
[2017-03-15] MEDS ORDERED: KETOROLAC 60 MG/2 ML VIAL (J1885) As Ordered ONE (13:18)
[2017-03-15] MEDS ORDERED: HYDROmorphone HCL 2 MG/ML 1ML VIAL (J1170) As Ordered ONE (13:28)
[2017-03-15] MEDS ORDERED: PERCOCET 5MG/325MG TAB PO PRN (13:45)
[2017-03-15] MEDS ORDERED: LR 1,000 ML IV SCH ×2 (13:45→14:00)
[2017-03-15] MEDS ORDERED: NORCO, ANEXSIA 5/325MG TABLET (HYDROcodone/ACETAMINOPHEN) PO PRN (14:00)
[2017-03-15] MEDS ORDERED: ONDANSETRON 4MG/2ML VIAL (J2405) IV PRN (14:00)
[2017-03-15] MEDS ORDERED: diphenhydrAMINE INJ 50MG/ML VIAL (J1200) IV ONE (14:00)
--- NOTE | 2017-03-15 14:18 | REP ---
Clinical: [id number]-V-Gscs placement . Comparison: 02/28/2017 . Findings: Left-sided [id number]-[id number]-Icrh identified with tip in the SVC. The mediastinum and cardiac silhouette are stable and within normal limits for portable technique. The lung shaver are clear without acute consolidation, effusion, or pneumothorax. Skeletal structures are intact. Impression: No acute cardiopulmonary process appreciated. Signed by Antwon Hill MD 03/15/2017 02:09 P
[2017-03-15 14:35] VITALS: BP 134/72
--- NOTE | 2017-03-15 19:27 | REP ---
Chest: Limited three views. History: [id number]. 4 seconds of fluoroscopy time is reported. Findings: A series of three last image hold fluoroscopic spot radiographs of the chest document [id number] placement. Signed by Franklin Kate MD 03/16/2017 08:00 A
--- NOTE | 2017-04-05 08:56 | RO ---
DATE OF PROCEDURE: 03/15/2017 PREOPERATIVE DIAGNOSIS: IV access needed for IV medication. POSTOPERATIVE DIAGNOSIS: IV access needed for IV medication. PROCEDURE: Left subclavian Infusaport placement with fluoroscopic guidance. SURGEON: Juan Ramon De La Cruz MD ANESTHESIA: IV sedation plus local. ESTIMATED BLOOD LOSS: Minimal. FLUIDS: Crystalloid. PROCEDURE SUMMARY: The patient was taken to the operating room and was given IV sedation. After adequate anesthesia was established, the patient was prepped and draped in the usual sterile fashion. Next, local lidocaine was infiltrated into the skin, subcutaneous tissue and the left subclavian area and finder needle was placed into the vein without significant difficulty. Next, the larger needle was placed into the vein and a wire was fed through this. Fluoroscopy confirmed placement of the wire down into the superior vena cava. Once this was established, the Infusaport pocket was infiltrated with local and the Infusaport pocket was first created with a skin knife. Electrocautery was used cut through dermis, underlying subcutaneous tissue and the Infusaport pocket was created with a combination of blunt and sharp dissection, as well as electrocautery. The Infusaport then was sutured in medial and laterally with #3-0 Vicryl and the catheter was cut to the appropriate length, attached to the Infusaport, brought out through the subcutaneous tunnel from the Infusaport site to the puncture site at the left subclavian area. Using a dilator over the wire, this was first placed without difficulty and without problems down into the superior vena cava area and then the dilator sheath combination was advanced. The wire, as well as the dilator were removed, and the catheter placed through the peel-away sheath. Peel-away sheath was removed at this time and fluoroscopy confirmed good placement of the catheter. Both sites were closed with #3-0 Vicryl in dermal layer and #4-0 Vicryl subcuticular. Steri-Strips and a dry sterile dressing was applied. The patient had the port site accessed, aspirated and flushed without difficulty and heparin flush was placed in this as well. The patient was awakened from her sedation, brought to the recovery room, awake, alert and hemodynamically stable. Sponge and needle counts correct times two.
== END 2017-03-15 14:51 | disposition home or self-care (01) ==
LOC: M SDC 11:13
PROVIDERS: ATTEND Surgery
DX: Z45.2 Encounter for adjustment and management of vascular access device (principal); F41.9 Anxiety disorder, unspecified; F32.9 Major depressive disorder, single episode, unspecified; K21.9 Gastro-esophageal reflux disease without esophagitis; T88.59XD Other complications of anesthesia, subsequent encounter; R94.31 Abnormal electrocardiogram [ECG] [EKG]; K31.84 Gastroparesis; M54.5 Low back pain; L40.9 Psoriasis, unspecified; F43.10 Post-traumatic stress disorder, unspecified; D89.40 Mast cell activation, unspecified; Z88.1 Allergy status to other antibiotic agents; Z88.5 Allergy status to narcotic agent; Z79.899 Other long term (current) drug therapy
CPT/HCPCS: 36561; 71010; 76000; 84703; C1788; J0690; J1170; J1200; J1885; J2250; J3010

== ENCOUNTER 2017-03-19 00:30 | Emergency (ER) | payer OTHER ==
[~2017-03-19] VITALS: Ht 172.7 cm; Wt 67.0 kg
[~2017-03-19 00:30] MED LIST changes: -LR 1,000 ML IV ONE; -ceFAZolin SOD 1 GM in D5W MINI-BAG PLUS 50 ML IV ONE
[2017-03-19] MEDS ORDERED: TRAZ-136 PO (00:51)
[2017-03-19] MEDS ORDERED: BENZ200C53 PO (01:44)
[2017-03-19] MEDS ORDERED: diphenhydrAMINE INJ 50MG/ML VIAL (J1200) IM ONE (01:45)
[2017-03-19] MEDS ORDERED: BENZONATATE 100 MG CAP PO ONE (01:45)
[2017-03-19 02:07] VITALS: BP 119/67
[2017-03-19] MEDS ORDERED: diphenhydrAMINE INJ 50MG/ML VIAL (J1200) IV STA (02:16)
[2017-03-19] MEDS ORDERED: SODIUM CHLORIDE 0.9% INJ 10 ML SYR IV PRN (02:30)
[2017-03-19] MEDS ORDERED: dexameTHASONE 20 MG/5 ML VIAL (J1100) IV ONE (02:30)
--- NOTE | 2017-03-19 08:15 | REP ---
Clinical: Shortness of breath . Comparison: 03/15/2017 . Technique: PA and lateral. Findings: The mediastinum and cardiac silhouette are normal [id number]-N-Pemh again identified with tip in the SVC. The lung shaver are clear and without acute consolidation, effusion, or pneumothorax. The skeletal structures are intact and normal. Impression: 1. No acute cardiopulmonary process. Signed by Antwon Hill MD 03/19/2017 08:07 A
[2017-03-19] MEDS ORDERED: SODIUM CHLORIDE 0.9% INJ 10 ML SYR IV SCH (09:00)
== END 2017-03-19 03:10 | disposition home or self-care (01) ==
LOC: M ED 00:30
DX: R05 Cough (principal); R07.9 Chest pain, unspecified; Z91.041 Radiographic dye allergy status; Z88.5 Allergy status to narcotic agent; Z88.8 Allergy status to other drugs, medicaments and biological substances; Z88.1 Allergy status to other antibiotic agents; Z79.899 Other long term (current) drug therapy
CPT/HCPCS: 71020; 96372; 96374; 96375; 99282; J1100

== ENCOUNTER → 2017-03-29 | Outpatient (REF) | payer OTHER ==
[~2017-03-29] MED LIST changes: +BENZ200C53 PO; +MEDR4TAB PO; +PERC5TAB12 PO; +TRAZ-136 PO; +[UNRECOGNIZED DRUG - CODE] PO; +benadryl IV
== END ==
LOC: M OUTALCOH 11:40
PROVIDERS: ATTEND Psychiatry & Neurology Psychiatry
DX: F12.10 Cannabis abuse, uncomplicated (principal)

== ENCOUNTER 2017-04-24 19:07 | Emergency (ER) | payer OTHER, SELFPAY ==
[~2017-04-24] VITALS: Ht 172.7 cm; Wt 68.2 kg
[~2017-04-24 19:07] MED LIST changes: -MEDR4TAB PO; -PERC5TAB12 PO; -[UNRECOGNIZED DRUG - CODE] PO; -benadryl IV
[2017-04-24] MEDS ORDERED: MEDR4TAB PO (19:21)
[2017-04-24] MEDS ORDERED: benadryl IV (19:21)
[2017-04-24] MEDS ORDERED: [UNRECOGNIZED DRUG - CODE] PO (19:21)
[2017-04-24] MEDS: KETOROLAC 60 MG/2 ML VIAL (J1885) IM ONE (19:45)
[2017-04-24] MEDS: PERCOCET 5MG/325MG TAB PO ONE (20:40)
[2017-04-24] MEDS ORDERED: PERC5TAB12 PO (20:41)
[2017-04-24] MEDS: diazePAM 5 MG TAB PO ONE (20:48)
[2017-04-24] MEDS: OXYCODONE/APAP 5MG/325MG(BULK FOR ED) 1 TABLET PO ONE (21:03)
[2017-04-24 21:07] VITALS: BP 125/77
--- NOTE | 2017-04-25 02:05 | REP ---
Clinical: Chest pain. Technique: PA and lateral. Comparison: 03/19/2017. Findings: Subtle left lower lobe atelectasis and small pleural effusion/reaction noted. Mediastinum and cardiac silhouette are normal. The remainder of lung shaver are well-aerated and clear. [id number] identified with tip in the SVC. No pneumothorax. Skeletal structures intact. Impression: Small left lower lobe infiltrate and pleural effusion/reaction. Signed by Antwon Hill MD 04/25/2017 01:55 A
== END 2017-04-24 21:09 | disposition home or self-care (01) ==
LOC: M ED 19:07
DX: R09.1 Pleurisy (principal)

== ENCOUNTER 2017-05-30 22:15 | Emergency (ER) | payer MEDICAID, OTHER, SELFPAY ==
[~2017-05-30] VITALS: Ht 172.7 cm; Wt 66.4 kg
[~2017-05-30 22:15] MED LIST changes: +MEDR4TAB PO; +PERC5TAB12 PO; +[UNRECOGNIZED DRUG - CODE] PO; +benadryl IV; +traZODone 50 MG TAB PO SCH
[2017-05-30] MEDS ORDERED: MOM 30ML SUSPENSION UDC PO PRN (23:00)
[2017-05-30] MEDS ORDERED: ACETAMINOPHEN TAB 650MG DOSE (2X325MG) PO PRN (23:00)
[2017-05-30] MEDS ORDERED: MAALOX 30 ML SUSP *UDC PO PRN (23:00)
[2017-05-31 00:46] VITALS: BP 152/94
== END 2017-05-31 00:48 | disposition home or self-care (01) ==
LOC: M ED 22:15 → M ED INP 23:42 → UNDOADMIN 23:42
DX: F32.9 Major depressive disorder, single episode, unspecified (principal); Z87.891 Personal history of nicotine dependence

== ENCOUNTER 2017-07-25 23:13 | Emergency (ER) | payer OTHER, MEDICAID, SELFPAY ==
[2017-07-26] MEDS: RACEPINEPHrine 2.25 % UD INHA NEB ×2 (00:13)
[2017-07-26 00:56] LABS: ABG BASE EXCESS -1.3 (-2.0-2.0); ABG HCO3 22.1 MEQ/L (22.0-26.0); ABG O2 SATURATION 97.2 % (95.0-99.0); ABG PARTIAL PRESSURE CO2 32.8 mmHg (35.0-45.0); ABG PARTIAL PRESSURE O2 92.7 mmHg (75.0-100.0); ABG STANDARD HCO3 23.3 MEQ/L (22.0-26.0); ABG TOTAL CO2 23.1 MEQ/L (22.0-29.0); ABG pH (ARTERIAL) 7.446 UNITS (7.350-7.450)
[2017-07-26 01:00] LABS: ANION GAP 4 MEQ/L (8-16); BLOOD UREA NITROGEN 10 MG/DL (7-18); CALCIUM LEVEL 9.1 MG/DL (8.5-10.1); CARBON DIOXIDE LEVEL 29 MEQ/L (21-32); CHLORIDE LEVEL 106 MEQ/L (98-107); CREATININE FOR GFR 0.61 MG/DL (0.55-1.02); GLOMERULAR FILTRATION RATE > 60.0 (>60); GLUCOSE, FASTING 105 MG/DL (70-105); POTASSIUM SERUM 3.9 MEQ/L (3.5-5.1); SODIUM LEVEL 139 MEQ/L (136-145)
[2017-07-26] MEDS: ONDANSETRON 4MG/2ML VIAL (J2405) IV ×2 (01:15)
[2017-07-26 02:06] LABS: WHITE BLOOD COUNT 8.8 10^3/uL (4.0-10.0)
[2017-07-26 02:07] LABS: HEMATOCRIT 32.3 % (36.0-47.0); HEMOGLOBIN 10.7 g/dl (12.0-16.0); MEAN CORPUSCULAR HEMOGLOBIN 27.4 pg (27.0-33.0); MEAN CORPUSCULAR HGB CONC 33.1 g/dl (32.0-36.5); MEAN CORPUSCULAR VOLUME 82.8 fl (80.0-96.0); RED CELL DISTRIBUTION WIDTH 14.5 % (11.5-14.5)
[2017-07-26 02:08] LABS: BASO % 0.3 % (0.0-1.0); EOS % 0.2 % (0.0-3.0); IMMATURE GRANULOCYTE % 0.3 % (0-0); LYMPH # 0.9 10^3/uL (1.5-4.5); LYMPH % 9.6 % (24.0-44.0); MONO # 0.2 10^3/uL (0.0-0.8); MONO % 2.5 % (0.0-5.0); NEUTROPHILS # 7.7 10^3/uL (1.8-7.7); NEUTROPHILS % 87.1 % (36.0-66.0)
[2017-07-26] MEDS: diphenhydrAMINE INJ 50MG/ML VIAL (J1200) IV ×2 (02:30)
== END 2017-07-26 02:52 | disposition home or self-care (01) ==
LOC: M ED 23:13
DX: R06.02 Shortness of breath (principal); D89.40 Mast cell activation, unspecified; Z79.899 Other long term (current) drug therapy; Z91.041 Radiographic dye allergy status; Z88.8 Allergy status to other drugs, medicaments and biological substances; Z91.018 Allergy to other foods; Z91.030 Bee allergy status
CPT/HCPCS: J1200

== ENCOUNTER → 2017-08-22 | Outpatient (CLI) | payer OTHER ==
[2017-08-22 11:49] LABS: BASO % 0.9 % (0.0-1.0); EOS # 0.1 10^3/uL (0.0-0.50); EOS % 2.4 % (0.0-3.0); HEMATOCRIT 36.4 % (36.0-47.0); HEMOGLOBIN 11.5 g/dl (12.0-16.0); IMMATURE GRANULOCYTE % 0.2 % (0-3.0); LYMPH # 1.5 10^3/uL (1.5-4.5); LYMPH % 32.2 % (24.0-44.0); MEAN CORPUSCULAR HEMOGLOBIN 26.4 pg (27.0-33.0); MEAN CORPUSCULAR HGB CONC 31.6 g/dl (32.0-36.5); MEAN CORPUSCULAR VOLUME 83.7 fl (80.0-96.0); MONO # 0.5 10^3/uL (0.0-0.8); MONO % 10.3 % (0.0-5.0); NEUTROPHILS # 2.5 10^3/uL (1.8-7.7); PLATELET COUNT, AUTOMATED 235 10^3/uL (150-450); RED BLOOD COUNT 4.35 10^6/uL (4.00-5.40); RED CELL DISTRIBUTION WIDTH 14.7 % (11.5-14.5); RETIC HEMOGLOBIN EQUIVALENT 28.8 pg (24-36); RETICULOCYTE # 60.5 10^9/L (17-77); RETICULOCYTE % 1.4 % (0.5-1.5); WHITE BLOOD COUNT 4.6 10^3/uL (4.0-10.0)
[2017-08-22 12:07] LABS: ERYTHROCYTE SEDIMENTATION RATE 49 mm/hr (0-20)
[2017-08-22 12:44] LABS: ANION GAP 5 MEQ/L (8-16); BLOOD UREA NITROGEN 14 MG/DL (7-18); C REACTIVE PROTEIN QUANTITATIV 6.92 MG/DL (0.00-0.30); CALCIUM LEVEL 8.9 MG/DL (8.5-10.1); CARBON DIOXIDE LEVEL 31 MEQ/L (21-32); CHLORIDE LEVEL 105 MEQ/L (98-107); CREATININE FOR GFR 0.87 MG/DL (0.55-1.30); FERRITIN 37 NG/ML (8-252); GLOMERULAR FILTRATION RATE > 60.0 (>60); GLUCOSE, FASTING 85 MG/DL (70-100); IRON (FE) 25 UG/DL (50-170); PERCENT SATURATION 7.6 % (13.2-45.0); POTASSIUM SERUM 3.9 MEQ/L (3.5-5.1); PREALBUMIN 24.6 MG/DL (20.0-40.0); RHEUMATOID FACTOR QUANT < 10.0 IU/ML (0-15.0); SODIUM LEVEL 141 MEQ/L (136-145); TOTAL IRON BINDING CAPACITY 330 UG/DL (250-450)
[2017-08-29 14:16] LABS: CYCLIC CITRULLINATED PEPTIDE 3 units (0-19)
[2017-08-29 14:16] LABS: ANTINUCLEAR ANTIBODIES DIRECT Negative (Negative); HLA-B27 Negative (.); TRANSFERRIN 258 mg/dL (200-370)
== END ==
LOC: M LAB 10:41
DX: L40.50 Arthropathic psoriasis, unspecified (principal); D64.9 Anemia, unspecified; R63.0 Anorexia; M54.2 Cervicalgia
CPT/HCPCS: 83735

== ENCOUNTER 2017-10-28 21:41 | Emergency (ER) | payer OTHER ==
[2017-10-28] MEDS: diphenhydrAMINE INJ 50MG/ML VIAL (J1200) IV ×2 (23:16)
[2017-10-28] MEDS: METOCLOPRAMIDE INJ 10MG/2ML VIAL (J2765) IV ×2 (23:30)
[2017-10-28] MEDS: HYDROmorphone HCL 1 MG/ML SYRINGE (J1170) IV ×2 (23:30)
[2017-10-28 23:50] LABS: BASO % 0.5 % (0.0-1.0); EOS # 0.1 10^3/uL (0.0-0.50); EOS % 1.2 % (0.0-3.0); HEMOGLOBIN 10.8 g/dl (12.0-15.5); IMMATURE GRANULOCYTE % 0.3 % (0-3.0); LYMPH # 1.6 10^3/uL (1.5-4.5); MEAN CORPUSCULAR HEMOGLOBIN 27.1 pg (27.0-33.0); MEAN CORPUSCULAR HGB CONC 32.7 g/dl (32.0-36.5); MEAN CORPUSCULAR VOLUME 82.9 fl (80.0-96.0); MONO # 0.5 10^3/uL (0.0-0.8); MONO % 7.3 % (0.0-5.0); NEUTROPHILS # 4.3 10^3/uL (1.8-7.7); NEUTROPHILS % 66.7 % (36.0-66.0); PLATELET COUNT, AUTOMATED 233 10^3/uL (150-450); RED BLOOD COUNT 3.98 10^6/uL (4.00-5.40); RED CELL DISTRIBUTION WIDTH 13.8 % (11.5-14.5); WHITE BLOOD COUNT 6.5 10^3/uL (4.0-10.0)
[2017-10-29 00:14] LABS: ALBUMIN 3.3 GM/DL (3.2-5.2); ALBUMIN/GLOBULIN RATIO 0.85 (1.00-1.93); ALKALINE PHOSPHATASE 68 U/L (45-117); ALT/SGPT 11 U/L (12-78); ANION GAP 8 MEQ/L (8-16); AST/SGOT 13 U/L (7-37); BILIRUBIN,TOTAL 0.2 MG/DL (0.2-1.0); BLOOD UREA NITROGEN 9 MG/DL (7-18); CALCIUM LEVEL 8.6 MG/DL (8.5-10.1); CARBON DIOXIDE LEVEL 26 MEQ/L (21-32); CHLORIDE LEVEL 107 MEQ/L (98-107); CREATININE FOR GFR 0.63 MG/DL (0.55-1.30); GLOMERULAR FILTRATION RATE > 60.0 (>60); GLUCOSE, FASTING 83 MG/DL (70-100); POTASSIUM SERUM 3.8 MEQ/L (3.5-5.1); SODIUM LEVEL 141 MEQ/L (136-145); TOTAL PROTEIN 7.2 GM/DL (6.4-8.2)
[2017-10-29] MEDS: HYDROmorphone HCL 1 MG/ML SYRINGE (J1170) IV ×2 (01:45)
[2017-10-29] MEDS: NORCO 5/325MG TABLET (BULK FOR ED) PO ×2 (02:00)
== END 2017-10-29 02:13 | disposition home or self-care (01) ==
LOC: M ED 10-29 02:13
DX: R10.30 Lower abdominal pain, unspecified (principal); R19.7 Diarrhea, unspecified; N80.9 Endometriosis, unspecified; K31.84 Gastroparesis; Z79.899 Other long term (current) drug therapy; Z91.030 Bee allergy status; Z91.89 Other specified personal risk factors, not elsewhere classified; Z91.041 Radiographic dye allergy status; Z88.5 Allergy status to narcotic agent; Z88.1 Allergy status to other antibiotic agents; Z88.8 Allergy status to other drugs, medicaments and biological substances
CPT/HCPCS: J1170

== ENCOUNTER 2017-10-29 14:36 | Emergency (ER) | payer OTHER ==
[2017-10-29] MEDS: NS 1,000 ML IV ×3 (16:30)
[2017-10-29] MEDS: diphenhydrAMINE INJ 50MG/ML VIAL (J1200) IV ×3 (16:51)
[2017-10-29] MEDS: METOCLOPRAMIDE INJ 10MG/2ML VIAL (J2765) IV ×3 (16:51)
[2017-10-29 17:00] LABS: BASO % 0.8 % (0.0-1.0); EOS # 0.1 10^3/uL (0.0-0.50); EOS % 2.2 % (0.0-3.0); HEMATOCRIT 31.9 % (36.0-47.0); HEMOGLOBIN 10.4 g/dl (12.0-15.5); IMMATURE GRANULOCYTE % 0.2 % (0-3.0); LYMPH # 1.6 10^3/uL (1.5-4.5); LYMPH % 31.3 % (24.0-44.0); MEAN CORPUSCULAR HEMOGLOBIN 27.5 pg (27.0-33.0); MEAN CORPUSCULAR HGB CONC 32.6 g/dl (32.0-36.5); MEAN CORPUSCULAR VOLUME 84.4 fl (80.0-96.0); MONO # 0.6 10^3/uL (0.0-0.8); MONO % 12.4 % (0.0-5.0); NEUTROPHILS # 2.7 10^3/uL (1.8-7.7); NEUTROPHILS % 53.1 % (36.0-66.0); PLATELET COUNT, AUTOMATED 232 10^3/uL (150-450); RED BLOOD COUNT 3.78 10^6/uL (4.00-5.40)
[2017-10-29] MEDS: HYDROmorphone HCL 1 MG/ML SYRINGE (J1170) IV ×6 (17:01→18:02)
[2017-10-29 17:20] LABS: CONTROL LINE HCG INT CTR LINE PRESENT; HCG, SERUM QUALITATIVE NEGATIVE (NEGATIVE)
[2017-10-29 17:30] LABS: LACTIC ACID SEPSIS PROTOCOL 1.1 MMOL/L (0.4-2.0)
[2017-10-29 17:35] LABS: ALBUMIN 3.1 GM/DL (3.2-5.2); ALBUMIN/GLOBULIN RATIO 0.72 (1.00-1.93); ALKALINE PHOSPHATASE 76 U/L (45-117); ALT/SGPT 11 U/L (12-78); AMYLASE 33 U/L (25-115); ANION GAP 7 MEQ/L (8-16); AST/SGOT 14 U/L (7-37); BILIRUBIN,DIRECT < 0.1 MG/DL (0.0-0.2); BILIRUBIN,TOTAL 0.2 MG/DL (0.2-1.0); BLOOD UREA NITROGEN 9 MG/DL (7-18); CALCIUM LEVEL 8.5 MG/DL (8.5-10.1); CARBON DIOXIDE LEVEL 26 MEQ/L (21-32); CHLORIDE LEVEL 108 MEQ/L (98-107); CREATININE FOR GFR 0.72 MG/DL (0.55-1.30); GLOMERULAR FILTRATION RATE > 60.0 (>60); GLUCOSE, FASTING 88 MG/DL (70-100); LIPASE 104 U/L (73-393); POTASSIUM SERUM 3.5 MEQ/L (3.5-5.1); SODIUM LEVEL 141 MEQ/L (136-145); TOTAL PROTEIN 7.4 GM/DL (6.4-8.2)
[2017-10-29] MEDS: cefTRIAXone SOD 2 GM in D5W MINI-BAG PLUS 50 ML IV ×3 (18:03)
[2017-10-29 18:05] LABS: CALCIUM OXALATE CRYSTALS RFX SMALL; KETONE, URINE AUTO RFX TRACE mg/dL (NEGATIVE); LEUKOCYTE ESTERASE UR AUTO RFX NEGATIVE (NEGATIVE); MUCUS, URINE RFX SMALL (NEGATIVE); NITRITE, URINE AUTO RFX NEGATIVE (NEGATIVE); RBC, URINE AUTO RFX 2 /HPF (0-3); SQUAM EPITHELIAL CELL UR AURFX 6 /HPF (0-6); WBC, URINE AUTO RFX 4 /HPF (0-3)
[2017-10-29] MEDS: AZITHROMYCIN 250 MG TAB PO ×3 (18:19)
[2017-10-29] MEDS: SODIUM CHLORIDE 0.9% INJ 10 ML SYR IV ×3 (19:00)
[2017-10-30] MEDS ORDERED: SODIUM CHLORIDE 0.9% INJ 10 ML SYR IV ×3 (09:00)
== END 2017-10-29 19:03 | disposition home or self-care (01) ==
LOC: M ED 14:36
DX: K59.00 Constipation, unspecified (principal); R10.9 Unspecified abdominal pain; J18.9 Pneumonia, unspecified organism; R51 Headache; M54.5 Low back pain; F43.10 Post-traumatic stress disorder, unspecified; F32.9 Major depressive disorder, single episode, unspecified; N80.9 Endometriosis, unspecified; K31.84 Gastroparesis; D89.40 Mast cell activation, unspecified; Z79.3 Long term (current) use of hormonal contraceptives; Z79.899 Other long term (current) drug therapy; Z91.030 Bee allergy status; Z88.1 Allergy status to other antibiotic agents; Z88.5 Allergy status to narcotic agent; Z88.8 Allergy status to other drugs, medicaments and biological substances; Z91.041 Radiographic dye allergy status; Z91.018 Allergy to other foods; Z91.89 Other specified personal risk factors, not elsewhere classified
CPT/HCPCS: J0696

== ENCOUNTER 2017-12-21 17:11 | Emergency (ER) | payer OTHER ==
[2017-12-21] MEDS: diphenhydrAMINE INJ 50MG/ML VIAL (J1200) IM (18:16)
[2017-12-21 18:49] LABS: CONTROL LINE HCG INT CTR LINE PRESENT; HCG, SERUM QUALITATIVE NEGATIVE (NEGATIVE)
[2017-12-21] MEDS: HYDROmorphone HCL 1 MG/ML SYRINGE (J1170) IV ×3 (18:54→20:56)
[2017-12-21] MEDS: RACEPINEPHrine 2.25 % UD INHA NEB (18:55)
[2017-12-21 18:58] LABS: ALBUMIN 3.5 GM/DL (3.2-5.2); ALKALINE PHOSPHATASE 59 U/L (45-117); ALT/SGPT 15 U/L (12-78); ANION GAP 12 MEQ/L (8-16); AST/SGOT 19 U/L (7-37); BILIRUBIN,DIRECT < 0.1 MG/DL (0.0-0.2); BILIRUBIN,TOTAL 0.3 MG/DL (0.2-1.0); BLOOD UREA NITROGEN 11 MG/DL (7-18); CALCIUM LEVEL 8.7 MG/DL (8.5-10.1); CARBON DIOXIDE LEVEL 21 MEQ/L (21-32); CHLORIDE LEVEL 108 MEQ/L (98-107); CK-MB VALUE MASS < 1.0 NG/ML (<3.6); CPK CREATINE PHOSPHOKINASE 112 U/L (26-192); CREATININE FOR GFR 0.89 MG/DL (0.55-1.30); GLOMERULAR FILTRATION RATE > 60.0 (>60); GLUCOSE, FASTING 118 MG/DL (70-100); MB/CK RELATIVE INDEX 0.89 (< OR =4); POTASSIUM SERUM 3.3 MEQ/L (3.5-5.1); SODIUM LEVEL 141 MEQ/L (136-145); TOTAL PROTEIN 7.4 GM/DL (6.4-8.2); TROPONIN I < 0.02 NG/ML (< 0.10)
[2017-12-21] MEDS: diphenhydrAMINE INJ 50MG/ML VIAL (J1200) IV (18:58)
[2017-12-21] MEDS: RACEPINEPHrine 2.25 % UD INHA INH (19:58)
[2017-12-21 21:22] LABS: HEMATOCRIT 37.8 % (36.0-47.0); HEMOGLOBIN 12.3 g/dl (12.0-15.5); MEAN CORPUSCULAR HEMOGLOBIN 28.1 pg (27.0-33.0); MEAN CORPUSCULAR HGB CONC 32.5 g/dl (32.0-36.5); MEAN CORPUSCULAR VOLUME 86.3 fl (80.0-96.0); PLATELET COUNT, AUTOMATED 249 10^3/uL (150-450); RED BLOOD COUNT 4.38 10^6/uL (4.00-5.40); RED CELL DISTRIBUTION WIDTH 14.6 % (11.5-14.5); WHITE BLOOD COUNT 9.2 10^3/uL (4.0-10.0)
[2017-12-21 21:23] LABS: ADD MANUAL DIFFER YES; DIFF SLIDE NUMBER 352; POSITIVE MORPH POS FLAG
[2017-12-21 21:40] LABS: ATYPICAL LYMPH 1 % (0-5); LYMPHOCYTES 7 % (16-52); NEUTROPHILS 92 % (35-75); PLATELET ESTIMATE NORMAL (NORMAL)
== END 2017-12-21 21:15 | disposition home or self-care (01) ==
LOC: M ED 17:11
DX: D89.40 Mast cell activation, unspecified (principal); F32.9 Major depressive disorder, single episode, unspecified; L40.50 Arthropathic psoriasis, unspecified; F41.9 Anxiety disorder, unspecified; Z87.891 Personal history of nicotine dependence; Z79.3 Long term (current) use of hormonal contraceptives; Z79.899 Other long term (current) drug therapy; Z91.030 Bee allergy status; Z88.1 Allergy status to other antibiotic agents; Z88.5 Allergy status to narcotic agent; Z88.8 Allergy status to other drugs, medicaments and biological substances; Z91.041 Radiographic dye allergy status; Z91.89 Other specified personal risk factors, not elsewhere classified
CPT/HCPCS: J1170

== ENCOUNTER 2017-12-31 00:54 | Emergency (ER) | payer OTHER ==
[2017-12-31] MEDS: OXYCODONE/APAP 5MG/325MG(BULK FOR ED) 1 TABLET PO (03:49)
== END 2017-12-31 03:57 | disposition home or self-care (01) ==
LOC: M ED 00:54
DX: I80.01 Phlebitis and thrombophlebitis of superficial vessels of right lower extremity (principal); R00.1 Bradycardia, unspecified; D89.40 Mast cell activation, unspecified; Z79.3 Long term (current) use of hormonal contraceptives; Z79.899 Other long term (current) drug therapy; Z88.1 Allergy status to other antibiotic agents; Z88.5 Allergy status to narcotic agent; Z91.89 Other specified personal risk factors, not elsewhere classified; Z88.8 Allergy status to other drugs, medicaments and biological substances; Z91.030 Bee allergy status; Z91.041 Radiographic dye allergy status
CPT/HCPCS: 93971